=== PATIENT | male | born 1990 | race Caucasian/White ===

== ENCOUNTER 2018-10-05 04:41 | Emergency (ER) | payer OTHER ==
[~2018-10-05] VITALS: Ht 185.4 cm; Wt 73.9 kg
[~2018-10-05 04:41] MED LIST: AUGMENTIN 875875 M1 PO; NORCO 5-325 TA1 EACH PO
[2018-10-05] MEDS ORDERED: IBUPROFEN 800800 MG PO (05:18)
[2018-10-05] MEDS ORDERED: ACETAMINOPHEN-1 EAC1 PO (05:18)
[2018-10-05] MEDS ORDERED: KEFLEX500 M1 PO (05:18)
[2018-10-05 05:59] VITALS: BP 118/72
== END 2018-10-05 06:00 | disposition home or self-care (01) ==
LOC: M.ERS 04:41
DX: S61.202A Unspecified open wound of right middle finger without damage to nail, initial encounter (principal); X58.XXXA Exposure to other specified factors, initial encounter; Y92.89 Other specified places as the place of occurrence of the external cause; Y93.89 Activity, other specified; Y99.8 Other external cause status

== ENCOUNTER 2018-10-28 19:44 | Inpatient (IN) | payer OTHER ==
[~2018-10-28] VITALS: Ht 182.9 cm; Wt 72.6 kg
[2018-10-28 19:44] VITALS: BP 127/67
[~2018-10-28 19:44] MED LIST changes: +ACETAMINOPHEN-1 EAC1 PO; +IBUPROFEN 800800 MG PO; +KEFLEX500 M1 PO
[2018-10-28] MEDS ORDERED: VENTOLIN HFA 1818 GM INH (19:49)
[2018-10-28 20:21] LABS: ABSOLUTE EOSINOPHILS 0.3 thou/uL (0.0-0.7); ABSOLUTE LYMPHOCYTES 1.8 thou/uL (0.8-5.3); ABSOLUTE MONOCYTES 0.4 thou/uL (0.0-1.2); ABSOLUTE NEUTROPHILS 7.6 thou/uL (1.6-8.1); BASOPHILS 0.5 %; EOSINOPHILS 3.3 %; HEMATOCRIT 47.4 % (42.0-52.0); HEMOGLOBIN 16.3 gm/dL (14.0-18.0); LYMPHOCYTES 18.1 %; MCH 32.5 pg (26.0-34.0); MCHC 34.4 g/dL (28.0-37.0); MCV 94.5 fL (80.0-100.0); MONOCYTES 3.5 %; NUCLEATED RBCS 0 /100WBC; PLATELET COUNT* 219 thou/uL (150-400); POLYS 74.6 %; RBC 5.01 mil/uL (4.50-6.00); RDW-CV 12.6 % (10.5-14.5); WBC 10.1 thou/uL (4.0-11.0)
--- NOTE | 2018-10-28 20:26 | NUR ---
WENT TO CT LAW ENFORCEMENT ACCOMPANIED PT
[2018-10-28 20:28] LABS: CALCIUM 10.1 mg/dL (8.5-10.1); POTASSIUM 4.3 mmol/L (3.5-5.1)
[2018-10-28 20:37] LABS: ALBUMIN 4.3 g/dL (3.4-5.0); TOTAL BILIRUBIN 0.3 mg/dL (<0.1-1.0); TOTAL PROTEIN 8.1 g/dL (6.4-8.2); TROPONIN-I LEVEL 0.11 ng/mL (<0.06)
[2018-10-28 20:46] LABS: URINE BILIRUBIN NEGATIVE (Negative); URINE BLOOD 2+ (Negative); URINE CLARITY CLEAR; URINE COLOR YELLOW; URINE GLUCOSE-RANDOM NEGATIVE (Negative); URINE KETONES TRACE (Negative); URINE LEUKOCYTES-REFLEX NEGATIVE (Negative); URINE NITRITE-REFLEX NEGATIVE (Negative); URINE PROTEIN 3+ (Negative); URINE SPECIFIC GRAVITY >= 1.030 (1.005-1.030); URINE UROBILINOGEN 0.2 E.U./dl (0.2-1.0)
[2018-10-28 20:56] LABS: AMP/METHAMP POSITIVE (Negative); BARBITURATES Negative (Negative); BENZODIAZEPINES Negative (Negative); COCAINE Negative (Negative); HYALINE CASTS >10 Many /LPF (None Seen); METHADONE Negative (Negative); OPIATES Negative (Negative); PCP Negative (Negative); SQUAMOUS 0-3 Few /LPF (0-3); THC POSITIVE (Negative)
[2018-10-28 20:57] LABS: CRYSTALS None Seen /LPF (None Seen); MUCUS None Seen strn/LPF (None Seen); URINE WBC-REFLEX 0-5 Rare /HPF (0-5)
[2018-10-28 20:58] LABS: BACTERIA-REFLEX None Seen /HPF (None Seen)
[2018-10-28 22:44] VITALS: BP 125/80
--- NOTE | 2018-10-29 | NUR ---
PT ARRIVED TO UNIT PER CART. AMBULATED WITH STEADY GAIT. REPORTED JON ONLY. IVF STARTED. NURSING ADMISSION ASSESSMENT COPLETE. LEFT KNEE SWOLLEN. APPLIED JULIENNE WRAP AND ICE PACK FOR COMFORT.
--- NOTE | 2018-10-29 03:45 | NUR ---
SPOKE WITH SANTOS @ CARDIOLOGY ANSWERING SERVICE IN [facility] TO PT'S CRITICAL HIGH TROPONIN. 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 ASNTOS WAS UNPROFESSIONAL. SHE WAS VERY SHORT WITH ME. CUT ME OFF SEVERAL TIMES AND TOLD ME I COULD ONLY ORDER A CALL BACK FROM THE OR A ROUTINE CONSULT FOR THE PATIENT AND NOT BOTH.
[2018-10-29 04:00] VITALS: BP 123/69
--- NOTE | 2018-10-29 04:50 | NUR ---
AFTER NOT HEARING BACK AFTER AN HOUR RE-CALLED CARDIOLOGY SERVICE. SPOKE WITH SHANTA THIS TIME. SHE WAS PROFESSIONAL AND HELPFUL. NOTIIFIED THAT A CALL BACK WAS NOT SENT OUT FOR THIS PATIENT YET (OR A CONSULT). ASSURED ME THAT SHE WOULD PAGE DR CONTRERAS.
--- NOTE | 2018-10-29 06:00 | NUR ---
SPOKE WITH SHANTA @ CARDIOLOGY SERVICE @ 6522 TO LET HER KNOW I HAD NOT HEARD FROM DR CONTRERAS YET. SHANTA REPAGED WELL PUT IN A ROUTINE CARDIOLOGY CONSULT FOR TODAY. DR CONTRERAS CALLED BACK WITHIN A FEW MINUTES. DR CONTRERAS STATED HE WOULD ADDRESS PT'S TROPONIN TODAY WHEN HE COMES IN.
[2018-10-29 08:10] VITALS: BP 124/82
[2018-10-29 12:07] VITALS: BP 125/77
[2018-10-29 15:48] VITALS: BP 110/71
--- NOTE | 2018-10-29 16:41 | NUR ---
VSS, ASSUMED CARE IN THE AM, ASSESSMENT PERFORMED AND CHARTED, FALL PRECAUTIONS IN PLACE AND CALL LIGHT IN REACH, PT IS A&O4 AND ON RA, AND IS TRACING SR ON THE MONITOR, PT HAS PAIN IN RIGHT KNEE, PT DENIES ANY CHEAT PAIN, PT GOAL IS TO COMPLETE STRSS TEST AND ECHO AND D/C WILL FOLLOW WITH PLAN OF CARE, HOURLY ROUNDS COMPLETED,
[2018-10-29 20:00] VITALS: BP 126/62
[2018-10-30 00:30] VITALS: BP 123/81
[2018-10-30 04:30] VITALS: BP 117/66
[2018-10-30 04:48] LABS: ABSOLUTE EOSINOPHILS 0.4 thou/uL (0.0-0.7); ABSOLUTE LYMPHOCYTES 2.2 thou/uL (0.8-5.3); ABSOLUTE MONOCYTES 0.6 thou/uL (0.0-1.2); ABSOLUTE NEUTROPHILS 2.6 thou/uL (1.6-8.1); BASOPHILS 0.7 %; EOSINOPHILS 6.7 %; HEMATOCRIT 36.9 % (42.0-52.0); LYMPHOCYTES 37.8 %; MCH 32.3 pg (26.0-34.0); MCHC 34.3 g/dL (28.0-37.0); MCV 94.3 fL (80.0-100.0); MONOCYTES 10.5 %; MPV 8.4 fl. (7.2-11.1); NUCLEATED RBCS 0 /100WBC; POLYS 44.3 %; RBC 3.91 mil/uL (4.50-6.00); RDW-CV 12.6 % (10.5-14.5); WBC 5.9 thou/uL (4.0-11.0)
[2018-10-30 04:59] LABS: POTASSIUM 4.2 mmol/L (3.5-5.1)
[2018-10-30 05:02] LABS: CREATININE 0.8 mg/dL (0.6-1.3)
[2018-10-30 05:12] LABS: HEMOGLOBIN 12.7 gm/dL (14.0-18.0); PLATELET COUNT* 121 thou/uL (150-400)
[2018-10-30 08:00] VITALS: BP 100/72
--- NOTE | 2018-10-30 10:57 | NUR ---
ASSUMED CARE OF PATIENT THIS AM AT 0730. PATIENT IS ALERT AND ORIENTED X 4. HE DENIES PAIN AND DISCOMFORT. PATIENT KEPT NPO FOR STRESS TEST. TELE SHOWS NSR. WILL CONTINUE TO MONITOR COMFORT AND SAFETY.
[2018-10-30 11:44] VITALS: BP 109/74
[2018-10-30 14:40] VITALS: BP 109/74
--- NOTE | 2018-10-30 14:47 | NUR ---
Pt out of room, anticipate dc post cardiac testing per nurse.
--- NOTE | 2018-10-30 14:52 | 2DMMODE ---
[place] [address] 2 D/M-MODE ECHOCARDIOGRAM Name: WESLEY DOWNEY Room: [address] IN [facility]#: [id number] Admission: 10/28/18 Attend Phys: Dominique Ortiz, Discharge: Date of : 89 Date of Service: 10/30/18 1452 Report #: [id number] THIS REPORT FOR: //name// APPROVED REPORT Study performed: 10/30/2018 10:02:34 EXAM: Comprehensive 2D, Doppler, and color-flow Echocardiogram Patient Location: In-Patient Room #: [facility] Status: routine BSA: 1.94 HR: 66 bpm BP: 117/66 mmHg Rhythm: NSR Other Information Study Quality: Good Indications Elevated Troponin 2D Dimensions IVSd: 10.23 (7-11mm) LVOT Diam: 22.80 (18-24mm) LVDd: 49.78 mm PWd: 9.81 (7-11mm) Ascending Ao: 29.30 (22-36mm) LVDs: 33.20 (25-40mm) Aortic Root: 32.32 mm Volumes Left Atrial Volume (Systole) LA ESV Index: 21.00 mL/m2 Aortic Valve AoV Peak Nick.: 1.03 m/s AO Peak Gr.: 4.27 mmHg LVOT Max P.30 mmHg AO Mean Gr.: 2.46 mmHg LVOT Mean P.95 mmHg LVOT Max V: 1.04 m/s AO V2 VTI: 19.24 cm LVOT Mean V: 0.63 m/s ELSA (VTI): 4.35 cm2 LVOT V1 VTI: 20.49 cm Mitral Valve E/A Ratio: 2.14 MV Decel. Time: 190.62 ms MV E Max Nick.: 0.97 m/[place] [address] 2 D/M-MODE ECHOCARDIOGRAM Name: WESLEY DOWNEY Room: [address] IN .R.#: [id number] Admission: 10/28/18 Attend Phys: Dominique Ortiz, Discharge: Date of : 89 Date of Service: 10/30/18 1452 Report #: [id number] MV PHT: 55.28 ms MVA (PHT): 3.98 cm2 TDI E/Lateral E': 7.46 E/Medial E': 7.46 Medial E' Nick.: 0.13 m/s Lateral E' Nick.: 0.13 m/s Pulmonary Valve PV Peak Nick.: 0.84 m/s PV Peak Gr.: 2.80 mmHg Left Ventricle The left ventricle is normal size. There is normal LV segmental wall motion. Borderline concentric left ventricular hypertrophy. Left ventricular systolic function is normal. The left ventricular ejection fraction is within the normal range. LVEF is 55%. The left ventricular diastolic function is normal. Right Ventricle The right ventricle is normal size. The right ventricular systolic function is normal. Atria The left atrium size is normal. Right atrium is dilated. Aortic Valve The aortic valve is normal in structure. No aortic regurgitation is present. There is no aortic valvular stenosis. Mitral Valve The mitral valve is normal in structure. Trace mitral regurgitation. No evidence of mitral valve stenosis. Tricuspid Valve The tricuspid valve is normal in structure. Trace tricuspid regurgitation. Unable to assess PA pressure. Pulmonic Valve The pulmonary valve is normal in structure. There is no pulmonic valvular regurgitation. Great Vessels The aortic root is normal in size. IVC is normal in size and collapses >50% with [place] [address] 2 D/M-MODE ECHOCARDIOGRAM Name: EWSLEY DOWNEY Room: [address] IN [facility]#: [id number] Admission: 10/28/18 Attend Phys: Dominique Ortiz, Discharge: Date of : 89 Date of Service: 10/30/18 1452 Report #: [id number] There is no pericardial effusion. <Conclusion> The left ventricle is normal size. Borderline concentric left ventricular hypertrophy. Left ventricular systolic function is normal. The left ventricular ejection fraction is within the normal range. LVEF is 55%. The left ventricular diastolic function is normal. The left atrium size is normal. The aortic valve is normal in structure. The mitral valve is normal in structure. The tricuspid valve is normal in structure. IVC is normal in size and collapses >50% with inspiration. There is no pericardial effusion. There is normal LV segmental wall motion. <ELECTRONICALLY SIGNED> By: Chito Houston MD, [facility] 10/30/18 1452 145 145 Chito Houston MD, [facility] /INF
--- NOTE | 2018-10-30 15:18 | EXE ---
[place] [address] STRESS ECHOCARDIOGRAM Name: WESLEY DOWNEY Room: [address] IN [facility].#: [id number] Admission: 10/28/18 Attend Phys: Dominique Ortiz, Discharge: Date of : 89 Date of Service: 10/30/18 1518 Report #: [id number] THIS REPORT FOR: //name// APPROVED REPORT Study performed: 10/30/2018 13:17:42 Exam: Dobutamine Stress Echo Indication: Troponin elevation Patient Location: In-Patient Stress Nurse: Navya Murrieta RN Room #: [facility] Supervising Physician: Chito Houston MD Ht: 6 ft 1 in HR: 78 bpm BP: 116/81 mmHg Medical History Cardiac Risk Factors: Tobacco History (Former) Procedure The patient underwent a Pharmacological Stress Test using Dobutamine. Blood pressure, heart rate, and EKG were monitored. An Echocardiogram was performed by botany technician in four stages in quad fashion. At peak stress, four selected images were obtained and placed side by side with resting images for comparison. Stress Test Details Stress Test: Pharmacological Stress Test using Dobutamine. Reason for pharmacologic stress test: physical limitation. HR Resting HR: 78 bpm Max Heart Rate (APMHR): 193 bpm Max HR Achieved: 162 bpm Target HR (85% APMHR): 164 bpm % of APMHR: 83 Recovery HR: 80 bpm HR response to stress: Normal HR response to stress BP Resting BP: 116/81 mmHg Max BP: 216/77 mmHg Recovery BP: 124/85 mmHg BP response to stress: Normal blood pressure response [place] [address] STRESS ECHOCARDIOGRAM Name: WESLEY DOWNEY Room: [address]#: [id number] Admission: 10/28/18 Attend Phys: Dominique Ortiz, Discharge: Date of : 89 Date of Service: 10/30/18 1518 Report #: [id number] Resting ECG: sinus rhythm minor IVCD Stress ECG: no ischemic st-t changes Clinical Reason for Termination: Completed protocol Pre-Stress Echo The resting Echocardiogram showed normal left ventricular contractility with an estimated Ejection Fraction of about 55-60%. Normal wall motion in all segments on baseline images. Post-Stress Echo The stress Echocardiogram showed normal left ventricular contractility with an estimated Ejection Fraction of about >70%. Normal augmentation of wall motion in all segments on post stress images. Conclusion Clinical Response: Non-ischemic Stress ECG Response: Non-ischemic Stress Echo Images: Non-ischemic Other Information Study Quality: Good <ELECTRONICALLY SIGNED> By: Chito Houston MD, [facility] [id number] Chito Houston MD, [facility] /INF
[2018-10-30 15:39] VITALS: BP 108/64
--- NOTE | 2018-10-31 09:27 | EKG ---
[place] [address] ELECTROCARDIOGRAM REPORT Name: WESLEY DOWNEY Room: [address] DIS IN M.R.#: [id number] Admission: 10/28/18 Attend Phys: Dominique Ortiz MD Discharge: 10/30/18 Date of : 89 Report #: [id number] THIS REPORT FOR: //name// 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1990 Requested By: Jocelyn Macias Order Number: [id number] Maximiliano MD: Sunny Briones Measurements Intervals [place] Rate: 135 P: 54 AR: 140 QRS: 105 QRSD: 97 T: 41 QT: 304 QTc: 456 Interpretive Statements Sinus tachycardia Probable left atrial enlargement Borderline right axis deviation Baseline wander in lead(s) I,II,aVR,aVL No previous ECG available for comparison Electronically Signed On 10-31-2018 9:27:01 CDT by Sunny Briones [email or web address] <ELECTRONICALLY SIGNED> By: Sunny Briones MD, FACC 10/31/18 0927 00 00 Sunny Briones MD, FACC /EPI
--- NOTE | 2018-10-31 09:28 | EKG ---
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
== END 2018-10-30 17:22 | disposition home or self-care (01) | DRG 154 ==
LOC: M.ERS 19:44 → M.2W 21:12 → M.TBA-ER 21:12 → M.2W 22:06
PROVIDERS: Internal Medicine; Nurse Practitioner Family; ADMIT Internal Medicine
PROC: 0HQ1XZZ Repair Face Skin, External Approach (ICD-10-PCS; principal; 2018-10-28)
DX: S02.2XXA Fracture of nasal bones, initial encounter for closed fracture (principal); I21.4 Non-ST elevation (NSTEMI) myocardial infarction; N17.9 Acute kidney failure, unspecified; S01.111A Laceration without foreign body of right eyelid and periocular area, initial encounter; W18.09XA Striking against other object with subsequent fall, initial encounter; R73.9 Hyperglycemia, unspecified; F19.10 Other psychoactive substance abuse, uncomplicated; F17.210 Nicotine dependence, cigarettes, uncomplicated; F15.10 Other stimulant abuse, uncomplicated; E86.0 Dehydration; Y93.02 Activity, running; Y92.89 Other specified places as the place of occurrence of the external cause; Y99.8 Other external cause status